=== PATIENT | female | born 2000 | race Caucasian/White ===

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

== ENCOUNTER 2021-08-02 11:27 | Emergency (ER) | payer BC ==
[~2021-08-02] VITALS: Ht 165.1 cm; Wt 71.8 kg
[2021-08-02 11:29] VITALS: TEMP 98.2
[2021-08-02 12:19] LABS: COLLECTION METHOD CLEAN CATCH
[2021-08-02 12:33] LABS: BASO % 0.2 % (0.0-2.0); EOS % 0.1 % (0.0-4.0); GRAN # 13.8 K/mm3 (1.4-6.5); GRAN % 82.8 % (42.2-75.2); HEMOGLOBIN 11.1 g/dl (12.0-15.0); LYMPH # 1.5 K/mm3 (1.2-3.4); LYMPH % 8.7 % (20.0-51.0); MEAN CELL VOLUME 84 fl (80.0-95.0); MEAN CORPUSCULAR HEMOGLOBIN 28 pg (26-32); MEAN CORPUSCULAR HGB CONC 34 g/dl (33.0-37.0); MEAN PLATELET VOLUME 11.3 fl (7.4-10.4); MONO # 1.3 K/mm3 (0.1-0.6); MONO % 7.7 % (1.7-9.3); PLATELET COUNT 362 K/mm3 (130-400); RED BLOOD COUNT 3.94 M/mm3 (4.10-5.30); REDCELL DISTRIBUTION WIDTH-CV 14.6 % (11.5-14.5)
[2021-08-02 12:34] LABS: MUCOUS Present (NOT PRESENT); PH 5 (5-8); URINE APPEARANCE Cloudy (CLEAR/HAZY); URINE BACTERIA Rare /hpf (NONE SEEN); URINE BILIRUBIN Negative (NEGATIVE); URINE BLOOD 1+ (NEGATIVE); URINE COLOR Yellow (YELLOW); URINE GLUCOSE Negative (NEGATIVE); URINE KETONE 1+ (NEGATIVE); URINE LEUKOCYTE ESTERASE 3+ (NEGATIVE); URINE NITRATE Negative (NEGATIVE); URINE PROTEIN(semi-quant) Negative (NEGATIVE); URINE UROBILINOGEN Negative (NEGATIVE)
[2021-08-02 12:37] LABS: HEMATOCRIT 32.9 % (35.0-45.0)
[2021-08-02 12:41] LABS: ALBUMIN 3.2 gm/dL (3.5-5.0); CREATININE, serum 0.61 mg/dL (0.57-1.11); POTASSIUM 3.8 mmol/L (3.5-4.5); TOTAL PROTEIN 6.7 gm/dL (6.2-8.1)
[2021-08-02 12:54] LABS: BILIRUBIN,TOTAL 0.3 mg/dL (0.2-1.2)
[2021-08-02] MEDS ORDERED: VANTIN 200200 MG/TAB PO (14:15)
[2021-08-02 14:25] VITALS: BP 116/65; PULSE 105
== END 2021-08-02 14:25 | disposition home or self-care (01) ==
LOC: COL.ER 11:27
PROVIDERS: Physician Assistant
DX: O23.02 Infections of kidney in pregnancy, second trimester (principal); Z88.1 Allergy status to other antibiotic agents; Z88.6 Allergy status to analgesic agent; Z3A.19 19 weeks gestation of pregnancy
CPT/HCPCS: J0696; J2270; J7030

== ENCOUNTER 2021-12-12 14:59 | Outpatient (CLI) | payer BC ==
[2021-12-12] VITALS (7 sets, daily range): BP systolic 137–146; BP diastolic 75–84; PULSE 71–87; TEMP 98.2
[~2021-12-12] VITALS: Ht 162.6 cm; Wt 83.6 kg
[~2021-12-12 14:59] MED LIST changes: +VANTIN 200200 MG/TAB PO
--- NOTE | 2021-12-12 15:10 | NUR ---
1510 - PATIENT AMBULATORY TO R6 ACCOMPANIED BY BABY'S FATHER. PATIENT ORIENTED TO ROOM. PATIENT CHANGES INTO GOWN. PATIENT REPORTS PAIN IN LOWER BACK, TIGHTNESS ACROSS BELLY. PATIENT ALSO REPORTS SATURATING A PAD WITH WATERY FLUID. PATIENT DENIES ANY BLOODY SHOW. PATIENT REPORTS GOOD MOVEMENT. PLAN OF CARE REVIEWED. 1518 - PATIENT PLACED ON MONITOR. 1525 - SVE PERFORMED BY THIS RN. /3. AMNIOTRACE NEGATIVE X2. 1508 - MD BENI NOTIFIED OF PATIENT STATUS BY PHONE. ORDERS TO MONITOR FOR 1 HOUR BY . CARE ONGOING.
[2021-12-12] MEDS ORDERED: PREVACID 15MG15 M1 PO (15:35)
--- NOTE | 2021-12-12 15:50 | NUR ---
1550 - CONTRACTION NOTED FOR 240 SEC. PROLONGED LATE DECEL ACCOMPANIES CONTRACTION. PATIENT POSITIONED LEFT LATERAL. FHR RETURNS TO BASELINE. CARE ONGOING.
--- NOTE | 2021-12-12 17:50 | NUR ---
1750 - MD BENI AT NURSES' STATION REVIEWING EFM STRIP. CARE ONGOING.
--- NOTE | 2021-12-12 18:28 | NUR ---
1828 - PATIENT DISCHARGED HOME WITH INSTRUCTIONS. PATIENT AMBULATORY OFF UNIT ACCOMPANIED BY SIGNIFICANT OTHER. DISCHARGE INSTRUCTIONS REVIEWED WITH PATIENT AND SO. PATIENT TO FOLLOW UP WITH [facility] TOMORROW.
== END 2021-12-12 18:28 | disposition home or self-care (01) ==
LOC: LDRO 14:59 → LDR 15:36 → LDRO 18:28
DX: Z34.03 Encounter for supervision of normal first pregnancy, third trimester (principal); Z3A.38 38 weeks gestation of pregnancy
CPT/HCPCS: OP

== ENCOUNTER 2021-12-13 01:34 | Outpatient (CLI) | payer BC ==
[~2021-12-13] VITALS: Ht 162.6 cm; Wt 83.6 kg
[2021-12-13] VITALS (9 sets, daily range): BP systolic 110–138; BP diastolic 61–91; PULSE 58–90
[~2021-12-13 01:34] MED LIST changes: +PREVACID 15MG15 M1 PO
--- NOTE | 2021-12-13 03:30 | NUR ---
Uterine activity; Irritability with irregular (>10 min apart) contractions, most recent 3 min long, FHt's without decel thoroughtout ctx and after.
--- NOTE | 2021-12-13 04:00 | NUR ---
FHT's not tracing. Pt in RL lateral. Awakened to place baby back on momitor.
--- NOTE | 2021-12-13 06:51 | NUR ---
0645 PATIENT UP TO BR. TOLERATES WELL
--- NOTE | 2021-12-13 08:51 | NUR ---
1196 DR BAZAN AT BEDSIDE TO TALK TO PATIENT. ALL DISCHARGE INSTRUCTIONS GIVEN TO PATIENT WITH VERBAL UNDERSTANDING. DENIES NEEDS.
--- NOTE | 2021-12-13 08:54 | NUR ---
0950 FHT 120 GOOD ACCELERATIONS. BABY VERY ACTIVE
== END 2021-12-13 08:50 | disposition home or self-care (01) ==
LOC: LDRO 01:34
DX: Z34.93 Encounter for supervision of normal pregnancy, unspecified, third trimester (principal); Z3A.38 38 weeks gestation of pregnancy

== ENCOUNTER 2021-12-24 06:10 | Inpatient (IN) | payer BC, MEDICAID ==
[~2021-12-24] VITALS: Ht 165.1 cm; Wt 85.5 kg
[2021-12-24] VITALS (61 sets, daily range): BP systolic 103–171; BP diastolic 58–101; PULSE 62–109; TEMP 97.7–98.8
[2021-12-24 07:50] LABS: BASO % 0.2 % (0.0-2.0); EOS % 0.1 % (0.0-4.0); GRAN # 8.8 K/mm3 (1.4-6.5); LYMPH # 2.2 K/mm3 (1.2-3.4); LYMPH % 18.3 % (20.0-51.0); MEAN CELL VOLUME 76 fl (80.0-95.0); MEAN CORPUSCULAR HGB CONC 32 g/dl (33.0-37.0); MEAN PLATELET VOLUME 11.7 fl (7.4-10.4); MONO # 1.1 K/mm3 (0.1-0.6); MONO % 8.9 % (1.7-9.3); PLATELET COUNT 326 K/mm3 (130-400); RED BLOOD COUNT 3.91 M/mm3 (4.10-5.30); REDCELL DISTRIBUTION WIDTH-CV 15.8 % (11.5-14.5)
[2021-12-24 07:58] LABS: HEMATOCRIT 29.7 % (35.0-45.0); HEMOGLOBIN 9.5 g/dl (12.0-15.0); MEAN CORPUSCULAR HEMOGLOBIN 24 pg (26-32)
--- NOTE | 2021-12-24 09:10 | NUR ---
DR MCKNIGHT IN PT ROOM, DISCUSSING PLAN OF CARE. HIM AND THE PT DISCUSS AROM. PT STATES WANTING TO WAIT TILL LUNCH TIME WHEN DR MCKNIGHT WILL RETURN AND RUPTURE MEMBRANES.
--- NOTE | 2021-12-24 10:32 | NUR ---
[id number] this rn at bedside adjusting FHR. movement heard on monitor.
--- NOTE | 2021-12-24 10:53 | NUR ---
[id number] this rn at bedside adjusting FHR monitor. movement audible.
--- NOTE | 2021-12-24 12:35 | NUR ---
MATERNAL HR TRACING DUE TO PT SITTING UPRIGHT
--- NOTE | 2021-12-24 14:20 | NUR ---
[employer] BATTER[employer] CONTAINER INSPECTOR CALLED FOR EPIDURAL.
--- NOTE | 2021-12-24 22:33 | NUR ---
@2100 UPDTATED REGARDING PT SVE 9.5/100/0 NO NEW ORDERS
[2021-12-25] VITALS (38 sets, daily range): BP systolic 114–162; BP diastolic 56–97; PULSE 73–123; TEMP 97.5–98.7
--- NOTE | 2021-12-25 03:39 | NUR ---
@0320 CALLED FOR RN TO EXAMINE PT. HILDA @0330 DR. JUAN LUIS BEAULIEUE PATIENT REPOSITIONED CINTIA CARE COMPLETE.
--- NOTE | 2021-12-25 05:52 | NUR ---
@2621 CALLED A AND SAID IT'S OK TO TURN PITOCIN OFF.
--- NOTE | 2021-12-25 05:53 | NUR ---
@0069 [employer]RIGO [employer] DEPARTMENT CHAIR WAS NOTIFIED REGARDING REQUEST FOR 500MG AZITHROMYCIN. RODRIGO SAID SHE WILL BRING IT UP.
--- NOTE | 2021-12-25 06:09 | NUR ---
@1761 Patient assisted with the removal of two rings and earrings that was labled and given to Quinton (FOJeannette). RN cleansed patient ABD,legs and shaved ABD. Quinton was given surgical clothing to attend delivery.
--- NOTE | 2021-12-25 06:15 | NUR ---
0615: BEDSIDE REPORT FROM JUANA GUIDO AT THIS TIME. PT PREPPED AND READY FOR TRANSPORT TO OR FOR NONSCHEDULED PRIMARY SECTION. EFM TRACING CATEGORY 1 STRIP AT THIS TIME. MATERNAL VITAL SIGNS STABLE.
--- NOTE | 2021-12-25 06:26 | NUR ---
@055O REPORT GIVEN TO JUANA CANNON
--- NOTE | 2021-12-25 16:36 | NUR ---
1600 PT UP TO SITTING. EPIDURAL CATHETER REMOVED AT THIS TIME. RODRIGUEZ CATHETER REMOVED WELL. PT ABLE TO HOLD LEGS UP BILATERALLY FOR 5 SECONDS. PT ABLE TO STAND AND WALK TO BATHROOM AND BACK. DID NOT NEED TO VOID AT THIS TIME. NEW GOWN AND SOCKS PLACED AT THIS TIME. PAD AND UNDERWEAR IN PLACE, PERICARE COMPLETED. BINDER ON. PT SITTING UP IN CHAIR AT THIS TIME ATTEMPTING TO BREASTFEED BABY. WILL CONTINUE TO MONITOR.
[2021-12-26 02:30] VITALS: BP 90/75; PULSE 62; TEMP 97.5
[2021-12-26 06:34] LABS: HEMATOCRIT 23.1 % (35.0-45.0)
[2021-12-26 06:36] LABS: HEMOGLOBIN 7.4 g/dl (12.0-15.0)
[2021-12-26 08:02] VITALS: BP 124/65; PULSE 75; TEMP 97.8
--- NOTE | 2021-12-26 09:49 | NUR ---
Initial visit attempt; Nurse with family, [employer] left card of congratulations and God's blessings for the of their daughter along with information regarding the availability of spiritual care at our hospital.
[2021-12-26 15:29] VITALS: BP 128/57; PULSE 80; TEMP 98.9
[2021-12-26 20:45] VITALS: BP 128/71; PULSE 83; TEMP 97.7
[2021-12-27 08:45] VITALS: BP 136/73; PULSE 64; TEMP 97.8
[2021-12-27] MEDS ORDERED: PERCOCET 325 MG1 TA2 PO (09:01)
[2021-12-27] MEDS ORDERED: FERROUS SU325 MG/TAB PO (09:01)
[2021-12-27] MEDS ORDERED: IBU600 MG PO (09:01)
--- NOTE | 2021-12-27 13:27 | NUR ---
DISCHARGE TEACHING COMPLETED. EDUCATED ON APPOINTMENT AND PRESCRIPTIONS. QUESTIONS INVITED AND ANSWERED.
== END 2021-12-27 13:55 | disposition home or self-care (01) | DRG 787 ==
LOC: LDR 06:10 → OB 06:10 → LDR 06:11 → OB 12-25 07:53
PROVIDERS: ADMIT Obstetrics & Gynecology
PROC: 10D00Z1 Extraction of Products of Conception, Low, Open Approach (ICD-10-PCS; principal; 2021-12-25)
DX: O99.02 Anemia complicating childbirth (principal); D62 Acute posthemorrhagic anemia; K21.9 Gastro-esophageal reflux disease without esophagitis; O43.123 Velamentous insertion of umbilical cord, third trimester; O99.62 Diseases of the digestive system complicating childbirth; O99.344 Other mental disorders complicating childbirth; O13.4 Gestational [pregnancy-induced] hypertension without significant proteinuria, complicating childbirth; O75.89 Other specified complications of labor and delivery; F41.9 Anxiety disorder, unspecified; D64.9 Anemia, unspecified; Z87.440 Personal history of urinary (tract) infections; Z88.1 Allergy status to other antibiotic agents; Z88.2 Allergy status to sulfonamides; Z88.8 Allergy status to other drugs, medicaments and biological substances; Z88.5 Allergy status to narcotic agent; Z3A.39 39 weeks gestation of pregnancy; Z37.0 Single live birth; Z86.16 Personal history of COVID-19
CPT/HCPCS: J0456; J0690; J1885; J2175; J2400; J2405; J2590; J3010; J7050; J7120

== ENCOUNTER 2023-05-09 15:17 | Outpatient (RCR) | payer OTHER, MEDICAID ==
[~2023-05-09] VITALS: Ht 165.1 cm; Wt 83.8 kg
[~2023-05-09 15:17] MED LIST changes: +FERROUS SU325 MG/TAB PO; +IBU600 MG PO; +PERCOCET 325 MG1 TA2 PO
[2023-05-09 15:54] VITALS: BP 118/73; PULSE 88; TEMP 98.8
[2023-05-09] MEDS ORDERED: ZOLOFT 50MG50 MG PO (15:58)
[2023-05-09] MEDS ORDERED: Iron Sucrose 200 MG in NS 100 ML Over 15 minutes IV ONE (16:00)
--- NOTE | 2023-05-09 16:11 | NUR ---
PT TOLERATED INITIAL IRON DOSE WELL. VS REMAINED WITHIN NORMAL LIMITS AND PT OBSERVED FOR 20 MINUTES FOLLOWING INFUSION, PT REMAINED FREE FROM SIGNS OF ADVERSE REACTION. IV DISCONTINUED.
== END 2023-05-26 ==
LOC: EUO
DX: E61.1 Iron deficiency (principal)
CPT/HCPCS: J1756

== ENCOUNTER 2023-06-20 15:00 | Outpatient (RCR) | payer OTHER, MEDICAID ==
[2023-05-30 15:33] VITALS: BP 118/77; PULSE 74; TEMP 98.5
[~2023-06-20] VITALS: Ht 165.1 cm; Wt 83.8 kg
[~2023-06-20 15:00] MED LIST changes: +ZOLOFT 50MG50 MG PO
[2023-06-20 15:32] VITALS: BP 131/79; PULSE 71; TEMP 98
== END 2023-06-20 15:47 | disposition home or self-care (01) ==
LOC: EUO 15:00
DX: E61.1 Iron deficiency (principal)
CPT/HCPCS: J1756

== ENCOUNTER 2023-10-01 22:08 | Emergency (ER) | payer OTHER, MEDICAID ==
[~2023-10-01] VITALS: Ht 165.1 cm; Wt 81.8 kg
[2023-10-01 22:14] VITALS: TEMP 98.3
[2023-10-01] MEDS ORDERED: Acetaminophen 325 MG TAB PO ONE (23:00)
[2023-10-01] MEDS ORDERED: diphenhydrAMINE 25 MG CAP PO ONE (23:00)
[2023-10-02] LABS: COLLECTION METHOD CLEAN CATCH
[2023-10-02 00:09] LABS: URINE APPEARANCE CLOUDY (CLEAR/HAZY); URINE BLOOD NEGATIVE (NEGATIVE); URINE COLOR YELLOW (YELLOW); URINE GLUCOSE NEGATIVE (NEGATIVE); URINE KETONE NEGATIVE (NEGATIVE); URINE NITRATE NEGATIVE (NEGATIVE); URINE PROTEIN(semi-quant) NEGATIVE (NEGATIVE); URINE UROBILINOGEN 0.2 E.U/dL (0.2-1.0)
[2023-10-02] MEDS ORDERED: CEPHALEXIN500 M1 PO (00:41)
[2023-10-02] MEDS ORDERED: Cephalexin 500 MG CAP PO ONE (00:45)
[2023-10-02 00:48] VITALS: BP 136/82; PULSE 74
== END 2023-10-02 00:48 | disposition home or self-care (01) ==
LOC: COL.ER 22:08
PROVIDERS: Nurse Practitioner Primary Care
DX: O23.42 Unspecified infection of urinary tract in pregnancy, second trimester (principal); N39.0 Urinary tract infection, site not specified; Z88.1 Allergy status to other antibiotic agents; Z88.2 Allergy status to sulfonamides

== ENCOUNTER 2024-03-24 07:56 | Outpatient (CLI) | payer OTHER, MEDICAID ==
[~2024-03-24] VITALS: Ht 165.1 cm; Wt 97.3 kg
--- NOTE | 2024-03-24 08:00 | NUR ---
0800- Pt arrives on unit ambulatory with spouse. Pt complains of constant pelvic pain and states she passed a blood clot approximately the size of a dime. 0807- Pt into bed. EFM and TOCO on and tracing well. O2 sat monitor on and tracing maternal HR. VSS. Pt reports she has had a headache for the past 2 days, has taken Tylenol without relief. Assessments completed. Pt denies VB, with exception of blood clot this morning, LOF, regular UCs. +FM per Pt. 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
[2024-03-24] MEDS ORDERED: PRENATAL TABLET PO (08:21)
[2024-03-24] MEDS ORDERED: TYLENOL 500MG500 MG PO (08:21)
[2024-03-24 08:30] VITALS: BP 119/75; PULSE 76; TEMP 98.2
[2024-03-24] MEDS ORDERED: LR 1,000 ML IV PRN (08:30)
[2024-03-24 09:00] VITALS: BP 115/75; PULSE 90
[2024-03-24 09:38] VITALS: BP 114/72; PULSE 88
--- NOTE | 2024-03-24 09:55 | NUR ---
0934- Recheck SVE by this RN unchanged, no bloody discharge noted on exam glove. Discussed Pt's comfort level with going home. Pt verbalizes being comfortable with discharing home. Pt was mainly worried about the blood clot. Labor precautions discussed and Pt denies questions, verbalizes understanding. EFM and TOCO off for Pt to change into street clothes. 090- Discharge paperwork given and discussed. Pt denies questions. Pt ambulates of unit in stable condition.
== END 2024-03-24 09:55 | disposition home or self-care (01) ==
LOC: LDRO 07:56
DX: O26.893 Other specified pregnancy related conditions, third trimester (principal); N89.8 Other specified noninflammatory disorders of vagina; Z3A.38 38 weeks gestation of pregnancy